=== PATIENT | male | born 1995 | race Caucasian/White ===

== ENCOUNTER 2016-09-13 23:15 | Emergency (ER) | payer MEDICAID ==
[2016-09-13] MEDS ORDERED: LIDOCAINE 1% INJ-PF (10 MG/ML) 30 ML SDV ONE (23:30)
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
[2016-09-14 00:57] VITALS: BP 132/73
== END 2016-09-14 00:59 | disposition home or self-care (01) ==
LOC: ER 23:15
PROC: 0HQCXZZ Repair Left Upper Arm Skin, External Approach (ICD-10-PCS; principal; 2016-09-13)
DX: S51.812A Laceration without foreign body of left forearm, initial encounter (principal); S41.112A Laceration without foreign body of left upper arm, initial encounter; X99.1XXA Assault by knife, initial encounter; Y92.009 Unspecified place in unspecified non-institutional (private) residence as the place of occurrence of the external cause
CPT/HCPCS: 12006; 99283; J3490

== ENCOUNTER 2016-09-23 15:34 | Emergency (ER) | payer MEDICAID ==
[2016-09-23 15:40] VITALS: BP 143/81
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
== END 2016-09-23 17:05 | disposition home or self-care (01) ==
LOC: ER 15:34
DX: S41.112D Laceration without foreign body of left upper arm, subsequent encounter (principal); W45.8XXD Other foreign body or object entering through skin, subsequent encounter